=== PATIENT | female | born 1950 | race Caucasian/White ===

== ENCOUNTER 2023-05-14 05:27 | Emergency (ER) | payer OTHER, SELFPAY ==
[2023-05-14 05:32] VITALS: BP 165/65; BMI 18.9
[2023-05-14] MEDS: DILAUDID 1 MG IV (05:50)
[2023-05-14] MEDS: NSS 1000 IV (05:50)
[2023-05-14 06:00] VITALS: BP 153/60
[2023-05-14 06:00] LABS: % Basophils 0.6 % (0-2); % Eosinophils 1.8 % (0-6); % Immature Granulocytes 0.7 % (0-0.5); % Lymphocytes 11.4 % (20.5-51.1); % Monocytes 7.9 % (1.7-9.3); % Neutrophils 77.6 % (42.2-75.2); Absolute Basophils 0.1 10^3/uL (0-0.2); Absolute Eosinophils 0.2 10^3/uL (0-0.7); Absolute Immature Granulocytes 0.1 10^3/uL (0-0.05); Absolute Lymphocytes 1.1 10^3/uL (1.2-3.4); Absolute Monocytes 0.8 10^3/uL (0.1-0.6); Absolute Neutrophils 7.4 10^3/uL (1.4-6.5); Hematocrit 34.3 % (37.0-47.0); Hemoglobin 10.6 g/dL (12.0-16.0); Mean Corp Hgb Conc. 30.9 g/dL (33.0-37.0); Mean Corpuscular Hgb 28.5 pg (27.0-31.0); Mean Corpuscular Volume 92.2 fL (81.0-99.0); Mean Platelet Volume 8.9 fL (7.4-10.4); Nucleated Red Blood Cells % 0 %; Platelet Count 530 10^3/uL (130-400); Red Blood Cell Count 3.72 10^6/uL (4.20-5.40); Red Cell Dist. Width 18.3 % (11.5-14.5); White Blood Cell Count 9.6 10^3/uL (4.8-10.8)
--- NOTE | 2023-05-14 06:12 | ED.GENMED ---
History of Present Illness
General
Chief Complaint: Musculo-Skeletal Complaint
Source: patient
Exam Limitations: none
Time Seen by Provider: 05/14/23 06:03
Nursing documentation reviewed up to this point in time: agreed with
Travel History
Have you had any contact with someone who has COVID-19?: No
Do you have any symptoms of coronavirus? Fever > 100 degrees, chills, cough, shortness of breath, sore throat, loss of taste or smell, muscle aches, or headache?: No
History of Present Illness
History of Present Illness:
Patient status post left lower leg bypass surgery at [facility] 2 weeks ago, presents to ED secondary to worsening leg pain since last night. Denies fever or chills. Denies loss of sensation or weakness. Patient states
that she has had ongoing pain since the procedure, but the pain became worse last night. Patient denies new trauma. Denies nausea or vomiting. Patient is currently at rehab facility since procedure.
Review of Systems
Review of Systems
Allergies reviewed?: Yes
All Other Systems: ROS reviewed and negative except as documented in HPI and ROS
Constitutional: Reports no symptoms; Denies fever or chills
ABD/GI: Reports no symptoms
Musculoskeletal: Reports other (Leg pain)
Skin: Reports no symptoms
Neurological: Reports no symptoms; Denies weakness or numbness
Phy Exam
Physical Exam
Physical Exam:
Physical Exam
General: mild painful distress, not acutely ill. afebrile
Head: nc/at. eomi
Neck: supple. normal range of motion
Abdomen: normal bowel sounds. not tender.
Neuro: alert and oriented. no focal neurological deficits
Skin: well healing wound noted over left inner groin with swelling and sutures in place, with swelling.
Psychiatric: well kept. interactive and cooperative
Extremities: LLE: normal DPP, foot warm to touch. normal cap refill - < 2 sec.
Course
Orders/Labs/Results
Orders:
Orders
05/14/23 05:37
US Legs, Left [US Periph Venous LOWER Ext LT] Urgent
Comment:
Reason For Exam: post surgical leg pain
05/14/23 05:41
HYDROmorphone [Dilaudid] 1 mg .ROUTE .STK-MED ONE
05/14/23 05:47
HYDROmorphone [Dilaudid] 1 mg IV NOW STA
05/14/23 05:49
0.9% Sodium Chloride 500 ml [Nss] 1,000 ml IV BOLUS
05/14/23 05:54
Complete Blood Count/With Diff Urgent
Comprehensive Metabolic Panel Urgent
05/14/23 07:00
US Groin (vascular exam) LT Urgent
Comment:
Reason For Exam: pain/swelling
05/14/23 08:43
CT Abd Aorta Angio W/ Run Off Urgent
Reason For Exam: Left groin pain/swelling, s/p bypass, modified per Dr. KAUR
Abnormal Lab Results
05/14/23
05:54
RBC 3.72 L 10^6/uL
(4.20-5.40)
Hgb 10.6 L g/dL
(12.0-16.0)
Hct 34.3 L %
(37.0-47.0)
MCHC 30.9 L g/dL
(33.0-37.0)
RDW 18.3 H %
(11.5-14.5)
Plt Count 530 H 10^3/uL
(130-400)
Abs Immat Gran (auto) 0.1 H 10^3/uL
(0-0.05)
Absolute Neuts (auto) 7.4 H 10^3/uL
(1.4-6.5)
Absolute Lymphs (auto) 1.1 L 10^3/uL
(1.2-3.4)
Absolute Monos (auto) 0.8 H 10^3/uL
(0.1-0.6)
Immature Gran % 0.7 H %
(0-0.5)
Neutrophils % 77.6 H %
(42.2-75.2)
Lymphocytes % 11.4 L %
(20.5-51.1)
BUN 23 H mg/dl
(7-17)
05/14/23 05:54
05/14/23 05:54
Vital Signs
Initial and Last Documented VS:
Initial Vital Signs
Temp Pulse Resp BP Pulse Ox
98.2 F 84 24 165/65 97
05/14/23 05:32 05/14/23 05:32 05/14/23 05:32 05/14/23 05:32 05/14/23 05:32
Last Documented Vital Signs
Temp Pulse Resp BP Pulse Ox
98.2 F 70 15 130/45 95
05/14/23 05:32 05/14/23 14:00 05/14/23 14:00 05/14/23 14:00 05/14/23 12:45
MDM/Problems Addressed
MDM/Problems Addressed:
US report reviewed and discussed with (vascular surgeon @ [facility]) - requests CTA LE.
CTA LE report reviewed and discussed with Dr. Dumont. Agrees with plan to transfer patient down to [facility] for further evaluation and treatment.
Transfer consent on the chart. Patient remains neurovascular intact.
*Critical Care Note
Total Time (30-74mins, 75-104mins- exclusive of procedures): Not Applicable
ED Attending Note
-
Portions of this chart may have been created with voice recognition software.� Occasional wrong word or��sound alike� substitutions may have occurred due to the inherent limitations of voice recognition software.
Discharge Plan
Departure
Patient Disposition: Acute Care Hospital
Date of Disposition: 05/14/23
Time of Disposition: 11:06
Discharge Problem:
Pseudoaneurysm
Referrals:
Darwin Pulido MD [Family Provider] -
Hospital Transfer
Other hospital: [facility]
I certify that the patient requires transfer: Yes
Discussed case with accepting physician:
Reason for transfer: medical necessity, availability of service and specialties available
Interventions
Interventions:
*Risk Screen - Suicide Last Done: 05/14/23 05:32
*General Assessment Last Done: 05/14/23 05:32
*Neglect/Abuse Screening Last Done: 05/14/23 05:32
ED- Fall Risk Assessment Last Done: 05/14/23 14:21
*ED COVID-19 Vaccine History Last Done: 05/14/23 05:32
*Nursing Disposition Last Done: 05/14/23 14:21
ED-Musculoskeletal Assessment Last Done: 05/14/23 06:00
Discharge Date and Time
Discharge Date/Time: 05/14/23 14:24
Print Language: LITHUANIAN
[2023-05-14 06:22] LABS: ALT (SGPT) 23 U/L (0-35); AST (SGOT) 33 U/L (14-36); Albumin 4.1 g/dl (3.5-5.0); Alkaline Phosphatase 90 U/L (38-126); Blood Urea Nitrogen 23 mg/dl (7-17); Calcium 9.7 mg/dl (8.4-10.2); Carbon Dioxide 29 mmol/L (22-30); Chloride 102 mmol/L (98-107); Estimated Creatinine Clearance 49 ml/min; Glucose 96 mg/dl (70-99); Potassium 4.7 mmol/L (3.5-5.1); Sodium 140 mmol/L (135-145); Total Bilirubin 0.4 mg/dl (0.2-1.3); Total Protein 6.9 g/dl (6.3-8.2); eGFR > 60.00
[2023-05-14 14:00] VITALS: BP 130/45
== END 2023-05-14 14:24 | disposition short-term general hospital (02) ==
LOC: EMR 05:27
PROVIDERS: Student in an Organized Health Care Education/Training Program; EMERGENCY PHYSICIAN Emergency Medicine; FAMILY PHYSICIAN Family Medicine
DX: I72.9 Aneurysm of unspecified site (principal)
CPT/HCPCS: 99285; 96374; 96361; 75635; 80053; 85025; 93926; 93971; Q9967